=== PATIENT | female | born 1990 | race Caucasian/White ===

== ENCOUNTER 2019-06-17 16:17 | Emergency (ER) | payer OTHER ==
--- NOTE | 2019-06-17 16:33 | PDOC ---
Rapid Medical Evaluation Time Seen by Provider: 06/17/19 16:30 Medical Evaluation: Allergies Allergy/AdvReac Type Severity Reaction Status Date / Time No Known Allergies Allergy Verified 06/17/19 16:29 06/17/19 16:30 Pt c/o: scheduled for d& c for incomplete miscarriage, but passed the fetus this am, 9 weeks , combination man payam, now with vag bleeding and cramping to lower abd Pt on brief exam: vss, brblast changed pad at 11AM Pt ordered for: ultrasound Pt proceed to the ED Discharge Disposition - Diagnosis Miscarriage - Discharge Dispostion Disposition: HOME Condition at time of disposition: Good - Prescriptions Prescriptions: Methylergonovine Maleate [Methergine] 0.2 mg PO TID #6 tablet - Referrals Referrals: Trini Torrez MD [Primary Care Provider] - - Patient Instructions Printed Discharge Instructions: DI for Miscarriage Additional Instructions: You came into the hospital for vaginal bleeding and cramping. You had a vaginal ultrasound showing that you had a miscarriage. You should take methergine 0.2 mg three times a day. Please take this medication for 2 days. Please follow up with your LICENSED JOURNEYMAN ELECTRICIAN next week to monitor your symptoms. If your symptoms worsen, of if you develop fevers, chills, nausea, vomiting, dizziness please return to the ED. - Post Discharge Activity
[2019-06-17 16:34] VITALS: BP 109/62; PULSE 65; TEMP 98; BMI 29.7
[2019-06-17 17:33] LABS: BASO % 0.3 % (0-2.0); EOS % 1.2 % (0-4.5); HEMOGLOBIN 11.9 GM/dL (10.7-15.3); LYMPH % 20.8 % (8-40); MCH 30.3 pg (25.7-33.7); MCHC 34.9 g/dl (32.0-36.0); MEAN CELL VOLUME 86.8 fl (80-96); MEAN PLT VOLUME 7.8 fl (7.5-11.1); MONO % 4.7 % (3.8-10.2); PLATELET COUNT 226 K/MM3 (134-434); RBC 3.92 M/mm3 (3.60-5.2); RDW 13.6 % (11.6-15.6); WHITE BLOOD COUNT 8.1 K/mm3 (4.0-10.0)
[2019-06-17] MEDS ORDERED: SODIUM CHLORIDE 1,000 ML IV STA (17:39)
[2019-06-17 17:49] LABS: EPI CELLS 0.4 /HPF (0-5/HPF); HYALINE CASTS 1 /lpf (0-8); URINE APPEARANCE CLEAR; URINE BACTERIA 1.7 /hpf (NEGATIVE); URINE BILIRUBIN NEGATIVE (NEGATIVE); URINE COLOR YELLOW; URINE GLUCOSE (UA) NEGATIVE (NEGATIVE); URINE KETONE NEGATIVE (NEGATIVE); URINE LEUK ESTERASE NEGATIVE (NEGATIVE); URINE NITRITE NEGATIVE (NEGATIVE); URINE PROTEIN NEGATIVE (NEGATIVE); URINE RBC 195 /hpf (0-4); URINE UROBILINOGEN 0.2 mg/dL (0.2-1.0); URINE WBC 0 /hpf (0-5)
--- NOTE | 2019-06-17 18:13 | PDOC ---
History of Present Illness - General Chief Complaint: Vaginal Bleeding Stated Complaint: MISSCARRIAGE Time Seen by Provider: 06/17/19 16:30 - History of Present Illness Initial Comments: Ms. Paul is a 29 y/o female A1 presenting with vaginal spotting increasing to vaginal bleeding over the past couple of days, and passing of her fetus this afternoon at 2pm. Reports this is her first miscarriage. Reports that she spoke with her OB and was instructed to come to the ED after passing her fetus. Reports cramping abdominal pain and has been using several pads per day. Denies fever, chills, nausea, vomiting. Denies dizziness, chest pain, shortness of breath. Denies headache. OB: Dr. Torrez Past History - Past Medical History Allergies/Adverse Reactions: Allergies Allergy/AdvReac Type Severity Reaction Status Date / Time No Known Allergies Allergy Verified 06/17/19 16:29 Home Medications: Ambulatory Orders Methylergonovine Maleate [Methergine] 0.2 mg PO TID #6 tablet 06/17/19 - Psycho Social/Smoking Cessation Hx Smoking History: Never smoked Review of Systems - Review of Systems Comments:: GENERAL/CONSTITUTIONAL: No fever or chills. No weakness. HEAD, EYES, EARS, NOSE AND THROAT: No change in vision. No change in hearing. No sore throat._ CARDIOVASCULAR: No chest pain or shortness of breath. RESPIRATORY: Denies cough, hemoptysis_ GASTROINTESTINAL: Reports cramping abdominal pain. No nausea, vomiting, diarrhea or constipation._ GENITOURINARY: No dysuria, frequency, or change in urination. Reports vaginal bleeding and spotting. MUSCULOSKELETAL: No joint or muscle swelling or pain. No neck or back pain._ SKIN: No rash_ NEUROLOGIC: No headache, vertigo, loss of consciousness, or change in strength/ sensation._ HEMATOLOGIC/LYMPHATIC: No anemia, easy bleeding, or history of blood clots._ *Physical Exam - Vital Signs Last Vital Signs Temp Pulse Resp BP Pulse Ox 98 F 65 18 109/62 99 06/17/19 16:32 06/17/19 16:32 06/17/19 16:32 06/17/19 16:32 06/17/19 16:32 - Physical Exam Comments: GENERAL: Awake, alert, and oriented to person/place/time, in no acute distress_ HEAD: No signs of trauma, normocephalic, atraumatic _ EYES: PERRLA, EOMI, sclera anicteric, conjunctiva clear_ ENT: Hearing grossly normal, nares patent, oropharynx clear without exudates. No uvular deviation. Moist mucosa_ NECK: Normal ROM, supple, no lymphadenopathy, JVD, or masses_ LUNGS: No distress, speaks in full sentences, clear to auscultation bilaterally _ HEART: Regular rate and rhythm, normal S1 and S2, no murmurs appreciated, peripheral pulses normal and equal bilaterally._ ABDOMEN: Soft, mild TTP bilateral lower quadrants. No guarding, no rebound. No masses_ EXTREMITIES: Normal inspection, Normal range of motion, no edema. No clubbing or cyanosis_ NEUROLOGICAL: Cranial nerves II through XII grossly intact. Normal speech, normal gait, no focal sensorimotor deficits _ SKIN: Warm, Dry, normal turgor, no rashes or lesions noted_ PELVIC: External inspection normal. Os open. Active clots and blood pooling posterior fornix. No CMT, no bilateral adnexal tenderness on bimanual exam. No discharge. No protrusion from the os. ED Treatment Course - LABORATORY CBC & Chemistry Diagram: 06/17/19 16:55 06/17/19 17:56 - ADDITIONAL ORDERS Additional order review: Laboratory Results 06/17/19 16:55 Urine Color Yellow Urine Appearance Clear Urine pH 5.0 Ur Specific [place] 1.016 Urine Protein Negative Urine Glucose (UA) Negative Urine Ketones Negative Urine Blood 3+ H Urine Nitrite Negative Urine Bilirubin Negative Urine Urobilinogen 0.2 Ur Leukocyte Esterase Negative Urine WBC (Auto) 0 Urine RBC (Auto) 195 Urine Casts (Auto) 1 U Epithel Cells (Auto) 0.4 Urine Bacteria (Auto) 1.7 06/17/19 16:55 RBC 3.92 MCV 86.8 MCHC 34.9 RDW 13.6 MPV 7.8 Neutrophils % 73.0 Lymphocytes % 20.8 Monocytes % 4.7 Eosinophils % 1.2 Basophils % 0.3 Medical Decision Making - Medical Decision Making 29F A1, presenting with increasing spotting, vaginal bleeding, over the past couple of days. Reports that she passed the fetus at 2pm today. Continues to have lower abdominal cramping and some vaginal bleeding. Kept fetus for genetic testing. Sent in by Dr. Torrez for D&C. -CBC, CMP, serum beta-hcg, coags -type and screen -TVUS -OB consult 06/17/19 19:00 Pt signed out to Dr. Mcclain. Discharge - Discharge Information Problems reviewed: Yes Clinical Impression/Diagnosis: Miscarriage Condition: Good Disposition: HOME - Additional Discharge Information Prescriptions: Methylergonovine Maleate [Methergine] 0.2 mg PO TID #6 tablet - Follow up/Referral Referrals: Trini Torrez MD [Primary Care Provider] - - Patient Discharge Instructions Patient Printed Discharge Instructions: DI for Miscarriage Additional Instructions: You came into the hospital for vaginal bleeding and cramping. You had a vaginal ultrasound showing that you had a miscarriage. You should take methergine 0.2 mg three times a day. Please take this medication for 2 days. Please follow up with your ADVERTISING STRATEGIST next week to monitor your symptoms. If your symptoms worsen, of if you develop fevers, chills, nausea, vomiting, dizziness please return to the ED. - Post Discharge Activity
[2019-06-17 19:00] LABS: ALBUMIN 3.6 g/dl (3.4-5.0); BILIRUBIN,TOTAL 0.9 mg/dL (0.2-1); BLOOD UREA NITROGEN 8.6 mg/dL (7-18); CALCIUM 8.9 mg/dL (8.5-10.1); CREATININE 0.6 mg/dL (0.55-1.3); POTASSIUM 3.4 mmol/L (3.5-5.1); TOT PROT 7.1 g/dl (6.4-8.2)
--- NOTE | 2019-06-17 19:29 | PDOC ---
*Physical Exam - Vital Signs Last Vital Signs Temp Pulse Resp BP Pulse Ox 98 F 65 18 109/62 99 06/17/19 16:32 06/17/19 16:32 06/17/19 16:32 06/17/19 16:32 06/17/19 16:32 ED Treatment Course - LABORATORY CBC & Chemistry Diagram: 06/17/19 16:55 06/17/19 17:56 - ADDITIONAL ORDERS Additional order review: Laboratory Results 06/17/19 06/17/19 06/17/19 17:56 17:56 16:55 Sodium 140 Potassium 3.4 L Chloride 106 Carbon Dioxide 29 Anion Gap 6 L BUN 8.6 Creatinine 0.6 Est GFR (CKD-EPI)AfAm 142.76 Est GFR (CKD-EPI)NonAf 123.17 Random Glucose 73 L Calcium 8.9 Total Bilirubin 0.9 AST 12 L ALT 19 Alkaline Phosphatase 72 Total Protein 7.1 Albumin 3.6 Serum , Qual Positive Urine Color Yellow Urine Appearance Clear Urine pH 5.0 Ur Specific [place] 1.016 Urine Protein Negative Urine Glucose (UA) Negative Urine Ketones Negative Urine Blood 3+ H Urine Nitrite Negative Urine Bilirubin Negative Urine Urobilinogen 0.2 Ur Leukocyte Esterase Negative Urine WBC (Auto) 0 Urine RBC (Auto) 195 Urine Casts (Auto) 1 U Epithel Cells (Auto) 0.4 Urine Bacteria (Auto) 1.7 Blood Type Antibody Screen 06/17/19 16:55 Sodium Potassium Chloride Carbon Dioxide Anion Gap BUN Creatinine Est GFR (CKD-EPI)AfAm Est GFR (CKD-EPI)NonAf Random Glucose Calcium Total Bilirubin AST ALT Alkaline Phosphatase Total Protein Albumin Serum , Qual Urine Color Urine Appearance Urine pH Ur Specific [place] Urine Protein Urine Glucose (UA) Urine Ketones Urine Blood Urine Nitrite Urine Bilirubin Urine Urobilinogen Ur Leukocyte Esterase Urine WBC (Auto) Urine RBC (Auto) Urine Casts (Auto) U Epithel Cells (Auto) Urine Bacteria (Auto) Blood Type O POSITIVE Antibody Screen Negative 06/17/19 16:55 RBC 3.92 MCV 86.8 MCHC 34.9 RDW 13.6 MPV 7.8 Neutrophils % 73.0 Lymphocytes % 20.8 Monocytes % 4.7 Eosinophils % 1.2 Basophils % 0.3 - Medications Given in the ED: ED Medications Discontinued Medications Generic Name Dose Route Start Last Admin Trade Name Freq PRN Reason Stop Dose Admin Sodium Chloride 1,000 mls @ 1,000 mls/hr 06/17/19 17:39 06/17/19 19:01 Normal Saline - IV 06/17/19 18:38 1,000 mls/hr ASDIR STA Administration Medical Decision Making - Medical Decision Making 06/17/19 19:28 TV U/S reviewed call out made to service -Dr Zelaya rec to DC w/ methergine 0.2mg TID and outpt f/u Discharge - Discharge Information Problems reviewed: Yes Clinical Impression/Diagnosis: Miscarriage Condition: Good - Admission No - Additional Discharge Information Prescriptions: Methylergonovine Maleate [Methergine] 0.2 mg PO TID #6 tablet - Follow up/Referral Referrals: Trini Torrez MD [Primary Care Provider] - - Patient Discharge Instructions Patient Printed Discharge Instructions: DI for Miscarriage Additional Instructions: You came into the hospital for vaginal bleeding and cramping. You had a vaginal ultrasound showing that you had a miscarriage. You should take methergine 0.2 mg three times a day. Please take this medication for 2 days. Please follow up with your BALLOON DIPPER next week to monitor your symptoms. If your symptoms worsen, of if you develop fevers, chills, nausea, vomiting, dizziness please return to the ED. - Post Discharge Activity
--- NOTE | 2019-06-17 20:06 | PDOC ---
Documentation entered by Evan Sin SCRIBE, acting as scribe for Paddy Basurto MD. Paddy Basurto MD: This documentation has been prepared by the Merrick valencia Daniel, SCRIBE, under my direction and personally reviewed by me in its entirety. I confirm that the documentation accurately reflects all work, treatment, procedures, and medical decision making performed by me. Attending Attestation - Resident Resident Name: Cortez Oglesby - ED Attending Attestation I have performed the following: I have examined & evaluated the patient, The case was reviewed & discussed with the resident, I agree w/resident's findings & plan - HPI HPI: 06/17/19 18:57 The patient is a 29 year old A1 9 week female with no past medical history here today for evaluation of vaginal bleeding. Patient reports that she has had 3 days of vaginal bleeding and passing clots which was preceded by 4 days of vaginal spotting. She states that she also has had suprapubic cramping. She also notes passing matter today and was told by her HVAC RESIDENTIAL SERVICE TECHNICIAN to come in today. Patient denies headache, lightheadedness. Denies fever, chills. Denies chest pain, shortness of breath. Denies nausea, vomiting, diarrhea. Allergies: NKA OBGYN: Viky Torrez - Physicial Exam PE: 06/17/19 20:03 vss, well appearing and conversant no pallor heart regular, lungs clear suprapubic discomfort to palpation without guarding/rebound. BS nl, soft/nd. pelvic per resident note - Medical Decision Making 06/17/19 20:04 29-year-old female with vaginal bleeding in first trimester, passage of products , hemodynamically stable without heavy active bleeding, benign abdominal exam. Labs as noted within normal limits, Rh+ Ultrasound shows no evidence of , normal ovaries, 1.4 cm endometrium. Discussed with Dr. Torrez, patient's SECURITIES CONSULTANT, who recommends d/c with tocolytic and office f/u. Pt agrees and understand return criteria. Presentation c/w complete ab.
--- NOTE | 2019-06-21 17:23 | PATH ---
Surgical Pathology Report Patient Name: MACK BILLINGS [facility]. Rec. #: [id number] /Age/Gender: 1990 (Age: 29) / F Account: [id number] Location: EMERGENCY ROOM Taken: 06/17/2019 Received: 06/20/2019 Reported: 06/21/2019 Physicians: Trini Torrez M.D. Specimen(s) Received PRODUCTS OF CONCEPTION Clinical History Miscarriage, bleeding Final Diagnosis PRODUCTS OF CONCEPTION, PASSAGE: IMMATURE CHORIONIC VILLI AND IMMATURE FETUS CONSISTENT WITH PRODUCTS OF CONCEPTION. Electronically Signed Yuridia Beltran M.D. Gross Description Received in formalin labeled "products of conception," is a 3.5 x 2.0 x 0.9 cm intact amniotic sac. The amniotic sac contains a less than 1 g intact fetus measuring 2.4 cm from crown to rump. No discrete abnormalities are noted. Villous tissue is identified. Business Planning Analyst sections of villous tissue are submitted in one cassette. /06/20/[address] [facility]/2019
== END 2019-06-17 20:39 | disposition home or self-care (01) ==
LOC: JER 16:17 → SUPCPDRO 16:17 → JER 20:39
PROC: 3E0337Z Introduction of Electrolytic and Water Balance Substance into Peripheral Vein, Percutaneous Approach (ICD-10-PCS; principal; 2019-06-17)
DX: O26.891 Other specified pregnancy related conditions, first trimester (principal); O03.9 Complete or unspecified spontaneous abortion without complication; Z3A.09 9 weeks gestation of pregnancy
CPT/HCPCS: 36415; 76830-TC; 80053; 81003; 84702; 84703; 85025; 86850; 86900; 86901; 88305-TC; 99283-25; J7030

== ENCOUNTER 2020-10-09 08:40 | Inpatient (IN) | payer OTHER ==
[2020-10-09] MEDS ORDERED: FENTANYL/BUPIVACAINE/NS/PF - PCEA - 50 ML DISP.SYRIN EP ONE (09:48)
[2020-10-09] MEDS ORDERED: PCA PUMP NR ONE (09:48)
[2020-10-09 10:32] VITALS: BMI 34.7
[2020-10-09] MEDS ORDERED: NALOXONE HCL 0.4 MG/ML VIAL IVPUSH PRN (10:51)
[2020-10-09] MEDS ORDERED: FENTANYL/BUPIVACAINE/NS/PF - PCEA - 50 ML DISP.SYRIN EP SCH ×2 (11:00→11:11)
[2020-10-09] MEDS ORDERED: LIDOCAINE HCL 1% PRESERVATIVE FREE - 30ML VIAL ONE (12:33)
[2020-10-09] MEDS ORDERED: OXYTOCIN 20 UNITS in 0.9% NS 20 UNIT/1,000 ML INFUS.BAG IV ONE (12:33)
[2020-10-09 13:48] LABS: CORD BASE EXCESS -4.3 mmol/L (0-2); CORD HCO3 22.9 mmHg (20-29); CORD PCO2 49.9 mmHg (30-78); CORD pH 7.28 (7.14-7.44)
[2020-10-09 13:49] LABS: CORD BASE EXCESS -2.9 mmol/L (0-2); CORD HCO3 24.8 mmHg (20-29); CORD PCO2 53.8 mmHg (30-78); CORD pH 7.281 (7.14-7.44)
[2020-10-09] MEDS ORDERED: IBUPROFEN 600 MG TABLET (FP) PO PRN (14:08)
[2020-10-09] MEDS ORDERED: METHYLERGONOVINE MALEATE 0.2 MG/1 ML AMP IM PRN (14:08)
[2020-10-09] MEDS ORDERED: BISACODYL 10 MG SUPP.RECT PR PRN (14:08)
[2020-10-09] MEDS ORDERED: BENZOCAINE 28 GM HEMORRHOIDAL OINTMENT RC PRN (14:08)
[2020-10-09] MEDS ORDERED: WITCH HAZEL 50% (TUCKS) 40 PAD/JAR PAD TP PRN (14:08)
[2020-10-09] MEDS ORDERED: BENZOCAINE 20% 57 GM BOTTLE TP PRN (14:08)
[2020-10-09] MEDS ORDERED: ACETAMINOPHEN 325 MG TABLET (FP) PO PRN (14:08)
[2020-10-09] MEDS ORDERED: ELECTROLYTE-148 SOLN 1,000 ML IV SCH (14:15)
[2020-10-09] MEDS ORDERED: OXYTOCIN 20 UNITS in 0.9% NS 20 UNIT/1,000 ML INFUS.BAG IV SCH (14:30)
[2020-10-10 09:00] LABS: BASO % 0.4 % (0-2.0); EOS % 0.3 % (0-4.5); HEMATOCRIT 29.5 % (32.4-45.2); HEMOGLOBIN 9.4 GM/dL (10.7-15.3); LYMPH % 10.7 % (8-40); MCH 24.1 pg (25.7-33.7); MCHC 31.9 g/dl (32.0-36.0); MEAN CELL VOLUME 75.6 fl (80-96); MEAN PLT VOLUME 8.3 fl (7.5-11.1); NEUT % 82.6 % (42.8-82.8); PLATELET COUNT 191 K/MM3 (134-434); RBC 3.91 M/mm3 (3.60-5.2); RDW 19.2 % (11.6-15.6); WHITE BLOOD COUNT 15.6 K/mm3 (4.0-10.0)
[2020-10-11 10:19] VITALS: BP 117/69; PULSE 76; TEMP 97.8
== END 2020-10-11 13:10 | disposition home or self-care (01) | DRG 560 ==
LOC: JLDR 08:40 → J3W 14:24
PROVIDERS: ADMIT Obstetrics & Gynecology; ATTEND Obstetrics & Gynecology
PROC: 10E0XZZ Delivery of Products of Conception, External Approach (ICD-10-PCS; principal; 2020-10-09)
DX: O34.219 Maternal care for unspecified type scar from previous cesarean delivery (principal); O48.0 Post-term pregnancy; O70.0 First degree perineal laceration during delivery; Z3A.40 40 weeks gestation of pregnancy; Z37.0 Single live birth
CPT/HCPCS: 36415; 36600; 59409; 82803; 85025; 86780; 86850; 86900; 86901; C9803; U0003